=== PATIENT | male | born 1990 | race Caucasian/White ===

== ENCOUNTER 2022-10-18 06:56 | Emergency (ER) | payer OTHER ==
[~2022-10-18] VITALS: Ht 185.4 cm; Wt 86.2 kg
[2022-10-18] MEDS ORDERED: CYCLOBENZAPRINE10 MG PO (07:11)
== END 2022-10-18 07:09 | disposition home or self-care (01) ==
LOC: ED 06:56
DX: Z04.1 Encounter for examination and observation following transport accident (principal); Z88.0 Allergy status to penicillin; V43.52XA Car driver injured in collision with other type car in traffic accident, initial encounter; W22.12XA Striking against or struck by front passenger side automobile airbag, initial encounter; Y93.89 Activity, other specified; Y92.410 Unspecified street and highway as the place of occurrence of the external cause; Y99.8 Other external cause status